=== PATIENT | male | born 1930 | race African-American/Black ===

== ENCOUNTER 2017-10-04 15:26 | Emergency (ER) | payer OTHER ==
[2017-10-04 15:46] VITALS: BMI 26.6
--- NOTE | 2017-10-04 15:46 | PDOC ---
Rapid Medical Evaluation Time Seen by Provider: 10/04/17 15:40 Medical Evaluation: 10/04/17 15:41 Pt c/o: hematuria and lower abd pain x 1 week, no medical tx. vns called ems Pt on brief exam: vss, Pt ordered for: ua, ucx Pt to proceed to the ED Discharge Disposition - Diagnosis Hematuria - Referrals - Patient Instructions - Post Discharge Activity
[2017-10-04 18:09] LABS: BASO % 0.3 % (0-2.0); EOS % 6.5 % (0-4.5); HEMATOCRIT 40.5 % (35.4-49); HEMOGLOBIN 13.9 GM/dL (11.7-16.9); LYMPH % 11.1 % (8-40); MCH 28.9 pg (25.7-33.7); MCHC 34.2 g/dl (32.0-35.9); MEAN CELL VOLUME 84.5 fl (80-96); MEAN PLT VOLUME 8.5 fl (7.5-11.1); MONO % 6.4 % (3.8-10.2); NEUT % 75.7 % (42.8-82.8); PLATELET COUNT 289 K/MM3 (134-434); RDW 15.2 % (11.9-15.9); WHITE BLOOD COUNT 15.8 K/mm3 (4.0-10.0)
--- NOTE | 2017-10-04 18:38 | PDOC ---
History of Present Illness - General History Source: Patient Exam Limitations: No Limitations - History of Present Illness Initial Comments: 10/04/17 18:52 The patient is a 87 year old male, with a significant past medical history of hypertension, BPH, who presents to the emergency department complaining of hematuria and lower abdominal pain for approx. 2 weeks. The patient states he is regularly seen at the [facility] and has been placed on a new medication isoniazid for the past 2-3 weeks for tuberculosis and has since been experiencing the hematuria. The patient states he has never had hematuria in the past. He denies any recent fevers, chills, headache or dizziness. He denies any recent nausea, vomit, diarrhea or constipation. He denies any recent chest pain or shortness of breath. He denies any recent dysuria, frequency, or urgency. Allergies: NKA Primary Care Physician: Dr. Wallace. <Meng White - Last Filed: 10/04/17 20:09> <Zo White - Last Filed: 10/05/17 01:57> - General Chief Complaint: Hematuria Stated Complaint: BLOOD IN URINE Time Seen by Provider: 10/04/17 15:40 Past History <Meng White - Last Filed: 10/04/17 20:09> - Past Medical History COPD: No Dementia: Yes HTN: Yes Thyroid Disease: Yes (HYPO) Other medical history: ENLARGED PROSTATE - Suicide/Smoking/Psychosocial Hx Smoking History: Never smoked <Zo White - Last Filed: 10/05/17 01:57> - Past Medical History Allergies/Adverse Reactions: Allergies Allergy/AdvReac Type Severity Reaction Status Date / Time No Known Allergies Allergy Verified 10/04/17 15:42 Home Medications: Ambulatory Orders Isoniazid 0 mg PO DAILY 10/04/17 levoFLOXacin [Levaquin -] 500 mg PO DAILY #7 tablet 10/04/17 Review of Systems - Review of Systems Comments:: 10/04/17 18:53 CONSTITUTIONAL: Absent: fever, no chills, no fatigue EYES: Absent: visual changes ENT: Absent: ear pain, no sore throat CARDIOVASCULAR: Absent: chest pain, no palpitations RESPIRATORY: Absent: cough, no SOB GI: Present: +Lower abdominal pain Absent: no nausea, no vomiting, no constipation, no diarrhea GENITOURINARY: Present: +Hematuria. Absent: dysuria, no frequency MUSKULOSKELETAL: Absent: back pain, no arthralgia, no myalgia SKIN: Absent: rash NEURO: Absent: headache <Meng White - Last Filed: 10/04/17 20:09> *Physical Exam - Vital Signs Last Vital Signs Temp Pulse Resp BP Pulse Ox 98.4 F 61 19 137/73 96 10/04/17 15:42 10/04/17 15:42 10/04/17 15:42 10/04/17 15:42 10/04/17 15:42 - Physical Exam Comments: 10/04/17 18:54 GENERAL: +Slightly disheveled. Awake and alert. No acute distress. HEENT: Normocephalic, atraumatic. PERRLA, EOMI. No conjunctival pallor. Sclera are non- icteric. Moist mucous membranes. Oropharynx is clear. NECK: Supple. Full ROM. No JVD. Carotid pulses 2+ and symmetric, without bruits. No thyromegaly. No lymphadenopathy. CARDIOVASCULAR: Regular rate and rhythm. No murmurs, rubs, or gallops. Distal pulses are 2+ and symmetric. PULMONARY: No evidence of respiratory distress. Lungs clear to auscultation bilaterally. No wheezing, rales or rhonchi. ABDOMINAL: Soft. Non-tender. Non-distended. No rebound or guarding. No organomegaly. Normoactive bowel sounds. MUSCULOSKELETAL Normal range of motion at all joints. No bony deformities or tenderness. No CVA tenderness. EXTREMITIES: No cyanosis. No clubbing. No edema. No calf tenderness. SKIN: Warm and dry. Normal capillary refill. No rashes. No jaundice. NEUROLOGICAL: Alert, awake, appropriate. Cranial nerves 2-12 intact. No deficits to light touch and temperature in face, upper extremities and lower extremities. No motor deficits in the in face, upper extremities and lower extremities. Normoreflexic in the upper and lower extremities. Normal speech. Toes are down- going bilaterally. PSYCHIATRIC: Cooperative. Good eye contact. Appropriate mood and affect. <Meng White - Last Filed: 10/04/17 20:09> - Vital Signs Last Vital Signs Temp Pulse Resp BP Pulse Ox 98.4 F 61 19 137/73 96 10/04/17 15:42 10/04/17 15:42 10/04/17 15:42 10/04/17 15:42 10/04/17 15:42 <Zo White - Last Filed: 10/05/17 01:57> ED Treatment Course - LABORATORY CBC & Chemistry Diagram: 10/04/17 17:41 10/04/17 17:41 - ADDITIONAL ORDERS Additional order review: 10/04/17 17:41 RBC 4.80 MCV 84.5 MCHC 34.2 RDW 15.2 MPV 8.5 Neutrophils % 75.7 Lymphocytes % 11.1 Monocytes % 6.4 Eosinophils % 6.5 H Basophils % 0.3 - RADIOLOGY Radiograph Interpretation: 10/04/17 20:09 EXAM#: TYPE/EXAM: RESULT: [id number] RAD/CHEST PA LAT Indication: History of tuberculosis, treated with isoniazid. Technique: PA and lateral views the chest. Comparison: None available. Findings: There is linear scarring versus atelectasis in the left lung base. There is no evidence of acute infiltrate, pulmonary vascular congestion, pleural effusion or pneumothorax. Normal size and contours of the cardiomediastinal silhouette. Thoracic aorta is uncoiled with calcification. There is 2.5 x 2.3 cm soft tissue prominence of the right hilum. Impression: No evidence of acute infiltrate or pleural effusion. Prominent right hilum as above may be distended pulmonary vasculature. Please compare with prior chest x-rays if available. Further evaluation with nonemergent, outpatient chest CT may be obtained. Reported By: Christian Ford DO <Meng White - Last Filed: 10/04/17 20:09> - LABORATORY CBC & Chemistry Diagram: 10/04/17 17:41 10/04/17 17:41 - ADDITIONAL ORDERS Additional order review: 10/04/17 17:41 RBC 4.80 MCV 84.5 MCHC 34.2 RDW 15.2 MPV 8.5 Neutrophils % 75.7 Lymphocytes % 11.1 Monocytes % 6.4 Eosinophils % 6.5 H Basophils % 0.3 - RADIOLOGY Radiology Studies Ordered: Category Date Time Status CHEST PA & LAT [RAD] Stat Radiology 10/04/17 16:56 Taken <Zo White - Last Filed: 10/05/17 01:57> Medical Decision Making - Medical Decision Making 10/05/17 01:50 87-year-old male who typically seeks his care at the [facility] in the [place] presents because of 2 weeks of hematuria. No fever,no flank pain,no vomtiing He presents with his son. Patient states that he has been taking isoniazid for 2-3 weeks, but had elevated LFT and was switched to rifampin Patient denies any cough, fever, chills, night sweats or weight loss. Pt had a respiratory mask placed on him while in ER He denies any flank pain. UA shows urinary tract infection and he was started on antibiotics. His son said that [facility] would be fine Pt instructed to follow at the [facility] where all [facility] physicians are <Zo White - Last Filed: 10/05/17 01:57> *DC/Admit/Observation/Transfer - Attestations Scribe Attestion: 10/04/17 18:55 Documentation prepared by Meng White, acting as biomedical electronics technician for Zo White MD. <Meng White - Last Filed: 10/04/17 20:09> <Zo White - Last Filed: 10/05/17 01:57> Diagnosis at time of Disposition: Hematuria Qualifiers: Hematuria type: unspecified type Qualified Code(s): R31.9 - Hematuria, unspecified UTI (urinary tract infection) Qualifiers: Urinary tract infection type: site unspecified Hematuria presence: with hematuria Qualified Code(s): N39.0 - Urinary tract infection, site not specified - Discharge Dispostion Disposition: HOME Condition at time of disposition: Stable - Prescriptions Prescriptions: levoFLOXacin [Levaquin -] 500 mg PO DAILY #7 tablet - Patient Instructions Printed Discharge Instructions: DI for Hemorrhagic Cystitis Additional Instructions: 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
[2017-10-04 18:48] LABS: ALBUMIN 2.8 g/dl (3.4-5.0); ANION GAP 6 (8-16); BILIRUBIN,TOTAL 0.9 mg/dL (0.2-1.0); BLOOD UREA NITROGEN 15 mg/dL (7-18); CALCIUM 8.6 mg/dL (8.5-10.1); CHLORIDE 106 mmol/L (98-107); CO2 27 mmol/L (21-32); CREATININE 1.1 mg/dL (0.7-1.3); GLUCOSE,RANDOM 106 mg/dL (74-106); POTASSIUM 3.9 mmol/L (3.5-5.1); SGOT/AST 144 U/L (15-37); SGPT/ALT 237 U/L (12-78); SODIUM 139 mmol/L (136-145); TOT PROT 7.6 g/dl (6.4-8.2)
[2017-10-04 18:49] LABS: ALK PHOS 233 U/L (45-117)
[2017-10-04 20:26] LABS: URINE APPEARANCE CLEAR; URINE BILIRUBIN NEGATIVE (<2.0 mg/dL); URINE BLOOD NEGATIVE (NEGATIVE); URINE COLOR AMBER; URINE GLUCOSE (UA) NEGATIVE (NEGATIVE); URINE KETONE NEGATIVE (NEGATIVE); URINE NITRITE NEGATIVE (NEGATIVE); URINE UROBILINOGEN 4.0 E.U/dl mg/dL (0.2-1.0)
[2017-10-04 20:29] LABS: URINE LEUK ESTERASE 2+ (NEGATIVE); URINE PROTEIN 1+ (NEGATIVE)
[2017-10-04 20:32] LABS: CALCIUM OXALATE CRYSTALS RARE /hpf (NONE SEEN); URINE MUCUS RARE
[2017-10-04] MEDS ORDERED: levoFLOXacin 750 MG TABLET PO STA (20:55)
[2017-10-04 21:39] VITALS: BP 110/78; PULSE 89; TEMP 99
== END 2017-10-04 21:40 | disposition home or self-care (01) ==
LOC: JER 15:26
DX: N39.0 Urinary tract infection, site not specified (principal); R31.9 Hematuria, unspecified; I10 Essential (primary) hypertension; E03.9 Hypothyroidism, unspecified; N40.0 Benign prostatic hyperplasia without lower urinary tract symptoms; Z86.11 Personal history of tuberculosis
CPT/HCPCS: 36415; 71046-TC-FY; 80053; 81003; 81015; 85025; 86850; 86900; 86901; 87086; 99283-25